=== PATIENT | female | born 1995 | race Asian ===

== ENCOUNTER 2022-06-05 13:17 | Inpatient (IN) ==
[2022-06-05] MEDS ORDERED: OXYTOCIN 30 UNITS/500 ML BAG IV PRN ×2 (15:19→16:18)
[2022-06-05] MEDS ORDERED: LIDOCAINE 1% LOCAL 20 ML VIAL INFIL PRN (15:19)
--- NOTE | 2022-06-05 15:24 | History & Physical Report ---
Date of Service June 05, 2022 Assessment & Plan (1) Supervision of normal first : Plan: Rupture of membranes. Will admit to L&D for labor. Epidural as desired. (2) Gestational hypertension: Plan: Elevated blood pressures. No prior history of elevated blood pressures with this pregancy. Will check CMP/CBC, urine protein/creatine ratio to r/u preeclampsia. Continue to trend blood pressures. History of Present Illness Chief Complaint: ROM Primary Care Provider: NO PCP Herminia is a 27 y/o female currently at 38 4/7 WGA with an SPIKE 06/15/22 as determined by LMP who is here for labor after rupture of membranes. Clear fluid around 12:00. Her was complicated by anemia s/p iron infusion x3 and B12 injections. Most recent hemoglobin= 13.1 (05/27/22). Denies contractions; + movement; + fluid loss; - bloody show External FHT and external uterine monitors used; Category 1 tracing; moderate FHT variability. Had regular appointments with OB. Labs: (11/04/21) Blood type: B+ Antibody screen: neg Hg: pending (today) Hct: pending (today) WBC: pending (today) Plt: pending (today) Rubella: immune VDRL/RPR: neg Gonorrhea: neg Chlamydia: neg HIV: neg HbSAg: neg GBS: neg Other screens: Declines cf/sma--mln Declines cfdna--mln Allergies Allergy/AdvReac Type Severity Reaction Status Date / Time No Known Allergies Allergy Verified 06/05/22 13:43 Home Medications Medication Instructions Recorded Confirmed Type prenat.vits,bryan,[id number] 1 tabs PO DAILY 12/30/21 06/05/22 History cyanocobalamin (B12)-cobamamide 1 tiffanie sublingual DAILY 06/05/22 06/05/22 History 5,000 mcg-100 mcg sublingual lozenge (B12) ferrous sulfate 325 mg (65 mg 325 mg PO DAILY 06/05/22 06/05/22 History iron) tablet (Iron (ferrous sulfate)) Patient History Medical History (Updated 06/05/22 @ 15:35 by Supriya Burleson DO) Anemia affecting had iron infusions X3 Last infusion in December; seeing Heme; also getting B 12 injections for moderate anemia. No known health problems Surgical History No history of previous surgery Family History Denies family history of Ovarian cancer Breast cancer Colorectal cancer Social History (Updated 06/05/22 @ 13:43 by Chika Chiu, RN) Smoking Status: Never smoker Hx Alcohol Use: No Hx Substance Use: No Preferred Language: Ibis Communication Tools: IPad Senior Program Planner Required: Yes Beliefs That Will Affect Care: Restorationism Restorationism Beliefs: Vegitarian; no meat marital status: marital status details: Feliberto Chaparro (26) [phone] Current Living Situation: Spouse Current Living Situation Comment: lives with spouse, no pets current occupational status: unemployed Other Information That Helps Us Care for You: No Feels Safe at Home: Yes Safety Concerns: Feels Safe At This Time Review of Systems Denies fever, chills, sweats Denies shortness of breath, difficulty breathing, chest pain, palpitations, chest pressure. Denies breast pain. Denies dysuria. Denies headache or changes in vision. Physical Exam Physical Exam: General: Alert, oriented. No acute distress. Cardiac: Regular rate and rhythm, no murmurs/rubs/gallops. Respiratory: Clear to auscultation bilaterally a/p, no wheezes/rales/rhonchi. No increased work of breathing. Symmetrical chest rise. No respiratory distress. Abdomen: Gravid Pelvic: Dilation 6 cm; Effacement 100; Station [address] Chaparro Lower Extremities: No lower extremity edema or swelling. No deep calf pain. Milagro's negative bilaterally Results & Data ([facility]) Vital Signs (Past 12 Hours) Vital Signs Temp Pulse Resp BP 06/05/22 15:13 76 159/89 H 06/05/22 15:00 37.1 C 06/05/22 14:54 92 H 143/90 H 06/05/22 14:34 86 150/91 H 06/05/22 14:15 81 158/92 H 06/05/22 13:53 78 163/90 H 06/05/22 13:33 18 06/05/22 13:33 37.0 C 18 06/05/22 13:32 81 172/92 H 06/05/22 13:29 77 187/96 H Supervising Physician Co-Signing Physician Notes Resident Physician Supervision Note: I was present with Dr. Burleson during the history and exam. I discussed the case with the resident and agree with the findings and plan as documented in the note. Any exceptions or clarifications are listed here: 27yo with cc of srom, labor. Denies bull or visual change or ruq pain but is having back pain and increased swelling. abd soft gravid nt, efw 7-8#, dtrs +2-+3, no clonus. fhts categ 1. sve 6/100/0. 38+wks rom, gestational hypertension--admit iv, labs, reeval for cx change. pit aug if needed. fhts categ 1. check urine prot/cr ratio, dip was trace protein. Documented By: Milagro Chaparro MD, FACOG Resident Activity Tracking Resident Involvement: Resident Care Provided Care Provided: OB Delivery (H&P)
[2022-06-05 16:06] LABS: Hematocrit (blood only) 38.5 % (34.1-44.9); Hemoglobin 13.2 g/dl (12.0-16.0); White Blood Count 10.64 K/ul (4.8-10.8)
[2022-06-05 16:09] LABS: Mean Corpuscular Hemoglobin 29.9 pg (25.0-34.0); Mean Corpuscular Hgb Conc 34.3 g/dL (32.0-36.0); Mean Corpuscular Volume 87.3 fL (80.0-100.0); Mean Platelet Volume 13.1 fL (9.4-12.3); Platelet Count 143 K/uL (130-400); Platelet Estimate Normal (Normal); RDW Coefficient of Variation 15.5 % (11.5-14.5); RDW Standard Deviation 49.5 fL (36.4-46.3); Red Blood Count 4.41 M/uL (3.93-5.22)
[2022-06-05 16:11] LABS: Alanine Aminotransferase 14 U/L (7-52); Albumin Globulin Ratio 1.1 (0.9-2); Albumin Level 3.9 gm/dl (3.4-5.0); Alkaline Phosphatase 164 U/L (34-104); Anion Gap 9 (3-11); Aspartate Aminotransferase 20 U/L (13-39); BUN Creatinine Ratio 11.8 (10-20); Bilirubin,Total 0.5 mg/dl (0.2-1.0); Blood Urea Nitrogen 6 mg/dl (6-23); Calcium 9.3 mg/dl (8.5-10.1); Carbon Dioxide 20 mmol/L (21-32); Chloride 107 mmol/L (98-107); Creatinine Clr Calc Pharmacy 152.1 ml/min; Est GFR (African American) > 150.0 ml/min; Est GFR (Non-African American) 130.9 ml/min; Globulin 3.5 gm/dl (2.5-4.0); Glucose 77 mg/dl (70-99(Fasting)); Potassium 3.8 mmol/L (3.5-5.1); Sodium 136 mmol/L (136-145); Total Protein 7.4 gm/dl (6.0-8.3)
[2022-06-05] MEDS: LACTATED RINGER'S 1,000 ML IV PRN ×3 (17:05→23:56)
[2022-06-05] MEDS ORDERED: LIDOCAINE 2%/EPINEPHRINE 1:200,000 20 ML SDV ONE (17:10)
[2022-06-05] MEDS ORDERED: BUPIVACAINE 0.25% 30 ML VIAL ONE (17:10)
[2022-06-05] MEDS ORDERED: SODIUM CHLORIDE 0.9% INJ 10 ML VIAL ONE (17:10)
[2022-06-05] MEDS ORDERED: ePHEDrine sulfate 50 MG/ML AMP ONE (17:10)
[2022-06-05] MEDS ORDERED: fentaNYL citrate 100 MCG/2 ML VIAL ONE (17:10)
[2022-06-05] MEDS ORDERED: fentaNYL 2MCG/ML ROPIVACAINE 1.25MG/ML 100 ML BAG EPI ONE (17:11)
[2022-06-05 18:23] LABS: Creatinine Urine Random 60.1 mg/dl; Protein Creatinine Ratio Urine 0.7 (0-0.2); Total Protein Urine Random 39.8 mg/dl (0-11.9)
--- NOTE | 2022-06-05 18:32 | Anesthesiology Consultation ---
Date of Service June 05, 2022 Assessment & Plan Chart Review Chart Review: Acceptable Risk for Labor Epidural Consults Requested none History Height/Weight Height: 5 ft 3 in Weight: 68.039 kg Allergies Allergy/AdvReac Type Severity Reaction Status Date / Time No Known Allergies Allergy Verified 06/05/22 13:43 Medications Home Medications Medication Instructions Recorded Confirmed Last Taken prenat.vits,bryan,vkj-cvtj-yrvqw 1 tabs PO DAILY 12/30/21 06/05/22 06/04/22 21:00 cyanocobalamin (B12)-cobamamide 1 tiffanie sublingual DAILY 06/05/22 06/05/22 06/04/22 21:00 5,000 mcg-100 mcg sublingual lozenge (B12) ferrous sulfate 325 mg (65 mg 325 mg PO DAILY 06/05/22 06/05/22 06/04/22 21:00 iron) tablet (Iron (ferrous sulfate)) Active Medications Generic Name Dose Route Start Last Admin Trade Name Freq PRN Reason Stop Dose Admin Lactated Ringer's 1,000 mls @ 125 mls/hr 06/05/22 15:19 06/05/22 17:56 Lr IV 06/07/22 15:18 125 mls/hr .Q8H PRN Administration L&D Protocol Protocol Past Medical History Medical History (Updated 06/05/22 @ 15:35 by Supriya Burleson DO) Anemia affecting had iron infusions X3 Last infusion in December; seeing Heme; also getting B 12 injections for moderate anemia. No known health problems Past Family History Family History Denies family history of Ovarian cancer Breast cancer Colorectal cancer Past Surgical History Surgical History No history of previous surgery Social History Smoking Status: Never smoker Hx Alcohol Use: No Hx Substance Use: No substance use type: does not use Physical Exam Vital Signs Last Vital Signs Temp 37.1 C 06/05/22 15:00 Pulse 114 H 06/05/22 18:31 Resp 18 06/05/22 13:33 BP 129/70 06/05/22 18:31 Pulse Ox 100 06/05/22 18:30 Testing Laboratory Results 06/05/22 15:32 06/05/22 15:32
[2022-06-05] MEDS ORDERED: diphenhydrAMINE 50 MG/ML VIAL IV PRN (18:33)
[2022-06-05] MEDS ORDERED: NALOXONE HCL 0.4 MG/1 ML VIAL/CARP IV PRN (18:33)
[2022-06-05] MEDS ORDERED: NALOXONE HCL 1 MG in SODIUM CHLORIDE 0.9% 1000ML 1,000 ML IV PRN (18:33)
[2022-06-05] MEDS ORDERED: fentaNYL 2MCG/ML ROPIVACAINE 1.25MG/ML 100 ML BAG EPI PRN (18:33)
[2022-06-05] MEDS ORDERED: NALBUPHINE HCL INJ 10 MG/ML AMP IV PRN (18:33)
[2022-06-05] MEDS: ePHEDrine sulfate 50 MG/ML AMP IV PRN (19:12)
--- NOTE | 2022-06-06 00:03 | Labor Progress Brief Note ---
Date of Service June 05, 2022 Subjective called to see patient, she is refusing to push. pt rolling in bed on my arrival, pointing to her her lower abdomen as painful during ctx. able to communicate between contractions. Assessment & Plan (1) Gestational hypertension: Plan pt has progressed to pushing but after 1hr pushing per nurse noted increased pain and does not want to push, wants to rest. when able to between her ctx, sp angus to pt and offered her c/s now vs. pushing vs. better pain mgmt and then eventual pushing. she elects to see if we can get her pain under control and then may try to push. nurse had not tried to increase settings as of yet but with pt pain display rec call anesth to see if anything they can provide with quicker relief. apparently epidural has been working. Nursing noting bladder emptied about 2.5 hr ago. Pt spouse not in room during discussion in hallway he asks me if she could have surgery, i told him that i did offer pt surgery but that is not what she has chosen thus far. he plans to go into room and review options and choices with spouse. fhts categ 1. no decels during ctx although not traced well, due to pt rolling. Admission and Anticipated Discharge Date Admission Date: June 05, 2022 Physical Exam Constitutional: WD/WN, vitals as above Genitourinary: OB Exam Monitor Tracing: + external FHT monitor used, + external uterine monitor used (q2), + category I and + normal FHT variability Results & Data ([facility]) Vital Signs (Past 12 Hours) Vital Signs Temp Pulse Resp BP Pulse Ox 06/05/22 19:15 97.7 F 16 06/05/22 19:00 18 06/05/22 18:45 20 06/05/22 17:00 98.4 F 06/05/22 18:30 18 06/05/22 21:43 97.7 F 18 06/05/22 23:56 103 H 175/96 H 06/05/22 23:55 102 H 100 06/05/22 23:50 102 H 96 06/05/22 23:45 107 H 96 06/05/22 23:41 92 H 91 06/05/22 23:40 85 99 06/05/22 23:35 90 98 06/05/22 23:33 99 H 155/76 H 06/05/22 23:30 108 H 100 06/05/22 23:25 97 H 99 06/05/22 23:22 108 H 153/75 H 06/05/22 23:20 114 H 100 06/05/22 23:16 96 H 146/82 H 06/05/22 23:15 105 H 99 06/05/22 23:12 110 H 152/75 H 06/05/22 23:10 101 H 99 06/05/22 23:05 92 H 99 06/05/22 23:00 97.7 F 103 H 20 99 06/05/22 22:55 109 H 98 06/05/22 22:54 92 H 157/77 H 06/05/22 22:50 101 H 99 06/05/22 22:45 100 H 100 06/05/22 22:42 98 H 136/88 06/05/22 22:40 99 H 99 06/05/22 22:37 96 H 158/77 H 06/05/22 22:35 100 H 100 06/05/22 22:32 88 159/77 H 06/05/22 22:31 115 H 191/103 H 06/05/22 22:30 101 H 100 06/05/22 22:27 98 H 143/82 H 06/05/22 22:25 93 H 100 06/05/22 22:20 102 H 152/79 H 100 06/05/22 22:17 110 H 170/89 H 06/05/22 22:15 102 H 100 06/05/22 22:13 18 06/05/22 22:13 18 06/05/22 22:12 99 H 135/89 06/05/22 22:10 103 H 100 06/05/22 22:06 90 148/81 H 06/05/22 22:05 90 100 06/05/22 22:02 82 144/77 H 06/05/22 22:00 102 H 100 06/05/22 21:57 86 139/79 06/05/22 21:55 98 H 100 06/05/22 21:51 90 150/80 H 06/05/22 21:50 93 H 100 06/05/22 21:46 82 146/80 H 06/05/22 21:45 97 H 100 06/05/22 21:44 88 143/74 H 06/05/22 21:42 97 H 170/71 H 06/05/22 21:40 93 H 100 06/05/22 21:35 82 06/05/22 21:35 87 142/75 H 100 06/05/22 21:32 102 H 198/122 H 06/05/22 21:30 115 H 100 06/05/22 21:27 109 H 139/80 06/05/22 21:25 84 100 06/05/22 21:20 88 100 06/05/22 21:16 101 H 159/75 H 06/05/22 21:15 86 100 06/05/22 21:11 95 H 154/84 H 06/05/22 21:10 99 H 100 06/05/22 21:07 93 H 134/77 06/05/22 21:05 86 100 06/05/22 21:02 85 135/79 06/05/22 21:00 88 100 06/05/22 20:56 106 H 122/69 06/05/22 20:55 91 H 100 06/05/22 20:52 98 H 142/68 H 06/05/22 20:50 109 H 100 06/05/22 20:47 88 123/62 06/05/22 20:45 100 H 100 06/05/22 20:42 98 H 132/74 06/05/22 20:40 89 100 06/05/22 20:37 98 H 130/78 06/05/22 20:35 89 100 06/05/22 20:31 92 H 130/72 06/05/22 20:30 85 100 06/05/22 20:28 100 H 124/65 06/05/22 20:25 103 H 100 06/05/22 20:22 100 H 116/67 06/05/22 20:20 93 H 100 06/05/22 20:16 87 131/73 06/05/22 20:15 83 100 06/05/22 20:11 99 H 136/69 06/05/22 20:10 85 100 06/05/22 20:07 101 H 126/66 06/05/22 20:05 85 100 06/05/22 20:02 95 H 128/71 06/05/22 20:00 96 H 100 06/05/22 19:56 96 H 130/66 06/05/22 19:55 103 H 100 06/05/22 19:52 96 H 121/67 06/05/22 19:50 99 H 100 06/05/22 19:46 100 H 116/68 06/05/22 19:45 105 H 100 06/05/22 19:42 86 124/64 06/05/22 19:40 104 H 100 06/05/22 19:36 81 116/63 06/05/22 19:35 92 H 99 06/05/22 19:33 100 H 117/60 06/05/22 19:30 105 H 100 06/05/22 19:26 93 H 129/62 06/05/22 19:25 106 H 100 06/05/22 19:22 85 122/56 L 06/05/22 19:20 96 H 99 06/05/22 19:17 96 H 130/60 06/05/22 19:15 137 H 100 06/05/22 19:11 109 H 127/60 06/05/22 19:10 115 H 99 06/05/22 19:06 98 H 96/55 L 06/05/22 19:05 99 H 99 06/05/22 19:03 90 117/56 L 06/05/22 19:00 97 H 100 06/05/22 18:56 93 H 123/65 06/05/22 18:55 91 H 99 06/05/22 18:50 102 H 100 06/05/22 18:49 109 H 129/61 06/05/22 18:47 112 H 131/65 06/05/22 18:45 92 H 134/64 99 06/05/22 18:43 111 H 128/64 06/05/22 18:41 99 H 133/67 06/05/22 18:40 94 H 99 06/05/22 18:39 93 H 132/66 06/05/22 18:37 92 H 132/66 06/05/22 18:35 94 H 139/66 99 06/05/22 18:33 92 H 136/68 06/05/22 18:31 114 H 129/70 06/05/22 18:30 110 H 100 06/05/22 18:29 117 H 133/76 06/05/22 18:27 90 140/73 06/05/22 18:25 78 153/74 H 100 06/05/22 18:23 77 06/05/22 18:23 154/79 H 06/05/22 18:23 83 167/80 H 06/05/22 18:20 96 H 100 06/05/22 18:15 109 H 100 06/05/22 18:10 102 H 100 06/05/22 18:05 93 H 100 06/05/22 18:00 91 H 100 06/05/22 17:55 87 100 06/05/22 17:50 95 H 100 06/05/22 17:45 98 H 100 06/05/22 17:40 97 H 100 06/05/22 15:53 87 141/92 H 06/05/22 15:34 88 178/104 H 06/05/22 15:35 83 165/98 H 06/05/22 15:13 76 159/89 H 06/05/22 15:00 98.8 F 06/05/22 14:54 92 H 143/90 H 06/05/22 14:34 86 150/91 H 06/05/22 14:15 81 158/92 H 06/05/22 13:53 78 163/90 H 06/05/22 13:33 18 06/05/22 13:33 98.6 F 18 06/05/22 13:32 81 172/92 H 06/05/22 13:29 77 187/96 H Coding Level of Care Code None Diagnoses Gestational hypertension O13.9
[2022-06-06] MEDS: ePHEDrine sulfate 50 MG/ML AMP IV PRN (00:31)
[2022-06-06] MEDS ORDERED: NURSING L&D Epidural Breakthrough Pain Update ONE (00:53)
[2022-06-06] MEDS ORDERED: LACTATED RINGER'S 1,000 ML IV SCH (05:15)
--- NOTE | 2022-06-06 05:20 | Labor Progress Brief Note ---
Date of Service June 06, 2022 Subjective came to see pt progress now 2hr from pushing after resting, did get relief from pain mgmt via epidural now pt rolling in bed and refusing to push. Assessment & Plan (1) Mild preeclampsia: Plan pt refusing to push and now requesting c/s. aware that with station and effective pushing that she could likely deliver but pt refuses. will not even engage me to consider this. c/s reviewed, risks, benefits, alt and consent signed. pit off. anesth aware. they are re-bolusing epidural to try to get pt pain relief now. will need to see how bps do as labile. Admission and Anticipated Discharge Date Admission Date: June 05, 2022 Physical Exam Constitutional: WD/WN, vitals as above Genitourinary: Manual OB Exam: + cervical dilation 10 cm, + cervical effacement 100% and + station + 2 OB Exam Monitor Tracing: + external FHT monitor used, + external uterine monitor used (q2-3), + category II, + normal FHT variability and + variable decelerations refusing to push and demanding c/s Results & Data ([facility]) Vital Signs (Past 12 Hours) Vital Signs Temp Pulse Resp BP Pulse Ox 06/05/22 19:15 97.7 F 16 06/05/22 19:00 18 06/05/22 18:45 20 06/05/22 18:30 18 06/05/22 21:43 97.7 F 18 06/06/22 05:15 114 H 100 06/06/22 05:11 116 H 90 06/06/22 05:10 115 H 100 06/06/22 05:05 120 H 172/115 H 98 06/06/22 05:01 119 H 81 L 06/06/22 05:00 118 H 100 06/06/22 04:55 138 H 92 06/06/22 04:50 127 H 100 06/06/22 04:48 116 H 176/95 H 06/06/22 04:45 109 H 97 06/06/22 04:43 119 H 90 06/06/22 04:40 119 H 99 06/06/22 04:37 114 H 93 06/06/22 04:35 133 H 99 06/06/22 04:33 117 H 143/87 H 06/06/22 04:30 117 H 99 06/06/22 04:25 108 H 98 06/06/22 04:20 106 H 98 06/06/22 04:15 115 H 99 06/06/22 04:12 123 H 159/86 H 06/06/22 04:10 126 H 99 06/06/22 04:05 122 H 98 06/06/22 04:00 129 H 100 06/06/22 03:55 120 H 100 06/06/22 03:50 125 H 97 06/06/22 03:45 116 H 98 06/06/22 03:40 118 H 98 06/06/22 03:35 116 H 99 06/06/22 03:34 133 H 139/98 06/06/22 03:30 110 H 99 06/06/22 03:25 124 H 100 06/06/22 03:20 128 H 100 06/06/22 03:19 120 H 143/81 H 06/06/22 03:15 124 H 99 06/06/22 03:10 103 H 99 06/06/22 03:07 105 H 140/76 06/06/22 03:05 113 H 99 06/06/22 03:01 118 H 149/106 H 06/06/22 03:00 119 H 100 06/06/22 02:56 108 H 119/57 L 06/06/22 02:55 105 H 100 06/06/22 02:54 102 H 126/66 06/06/22 02:50 111 H 100 06/06/22 02:47 18 06/06/22 02:47 98.1 F 18 06/06/22 02:45 89 99 06/06/22 02:42 90 129/63 06/06/22 02:40 85 99 06/06/22 02:36 105 H 110/71 06/06/22 02:35 102 H 99 06/06/22 02:31 100 H 105/61 06/06/22 02:30 88 98 06/06/22 02:26 87 109/57 L 06/06/22 02:25 84 100 06/06/22 02:21 95 H 108/58 L 06/06/22 02:20 100 H 99 06/06/22 02:16 102 H 101/50 L 06/06/22 02:15 89 100 06/06/22 02:12 99 H 131/56 L 06/06/22 02:10 88 99 06/06/22 02:06 100 H 118/64 06/06/22 02:05 99 H 99 06/06/22 02:02 109 H 126/58 L 06/06/22 02:00 86 99 06/06/22 01:57 86 99/52 L 06/06/22 01:55 85 99 06/06/22 01:53 96 H 121/52 L 06/06/22 01:50 94 H 99 06/06/22 01:47 97 H 119/58 L 06/06/22 01:45 101 H 100 06/06/22 01:43 88 102/56 L 06/06/22 01:40 109 H 100 06/06/22 01:37 97 H 135/86 06/06/22 01:35 102 H 100 06/06/22 01:33 86 113/56 L 06/06/22 01:30 88 99 06/06/22 01:26 93 H 119/60 06/06/22 01:25 87 100 06/06/22 01:21 83 112/62 06/06/22 01:20 97 H 99 06/06/22 01:16 82 105/55 L 06/06/22 01:15 88 100 06/06/22 01:12 82 108/54 L 06/06/22 01:10 88 100 06/06/22 01:06 83 102/55 L 06/06/22 01:05 87 99 06/06/22 01:02 80 102/53 L 06/06/22 01:00 88 99 06/06/22 00:58 97 H 98/50 L 06/06/22 00:55 91 H 100 06/06/22 00:51 101 H 100/55 L 06/06/22 00:50 96 H 100 06/06/22 00:48 97 H 110/55 L 06/06/22 00:45 114 H 100 06/06/22 00:41 114 H 97/49 L 06/06/22 00:40 90 99 06/06/22 00:38 108 H 107/55 L 06/06/22 00:35 94 H 100 06/06/22 00:33 123 H 96/50 L 06/06/22 00:30 114 H 100 06/06/22 00:28 131 H 84/50 L 06/06/22 00:25 121 H 99 06/06/22 00:22 122 H 122/58 L 06/06/22 00:20 113 H 99 06/06/22 00:16 111 H 141/70 H 06/06/22 00:15 114 H 99 06/06/22 00:11 96 H 154/72 H 06/06/22 00:10 100 H 100 06/06/22 00:08 92 H 06/06/22 00:08 170/88 H 06/06/22 00:08 93 H 166/86 H 06/06/22 00:06 90 143/90 H 06/06/22 00:05 103 H 100 06/06/22 00:01 102 H 175/89 H 06/06/22 00:00 103 H 99 06/05/22 23:58 101 H 93 06/05/22 23:56 103 H 175/96 H 06/05/22 23:55 102 H 100 06/05/22 23:50 102 H 96 06/05/22 23:45 107 H 96 06/05/22 23:41 92 H 91 06/05/22 23:40 85 99 06/05/22 23:35 90 98 06/05/22 23:33 99 H 155/76 H 06/05/22 23:30 108 H 100 06/05/22 23:25 97 H 99 06/05/22 23:22 108 H 153/75 H 06/05/22 23:20 114 H 100 06/05/22 23:16 96 H 146/82 H 06/05/22 23:15 105 H 99 06/05/22 23:12 110 H 152/75 H 06/05/22 23:10 101 H 99 06/05/22 23:05 92 H 99 06/05/22 23:00 97.7 F 103 H 20 99 06/05/22 22:55 109 H 98 06/05/22 22:54 92 H 157/77 H 06/05/22 22:50 101 H 99 06/05/22 22:45 100 H 100 06/05/22 22:42 98 H 136/88 06/05/22 22:40 99 H 99 06/05/22 22:37 96 H 158/77 H 06/05/22 22:35 100 H 100 06/05/22 22:32 88 159/77 H 06/05/22 22:31 115 H 191/103 H 06/05/22 22:30 101 H 100 06/05/22 22:27 98 H 143/82 H 06/05/22 22:25 93 H 100 06/05/22 22:20 102 H 152/79 H 100 06/05/22 22:17 110 H 170/89 H 06/05/22 22:15 102 H 100 06/05/22 22:13 18 06/05/22 22:13 18 06/05/22 22:12 99 H 135/89 06/05/22 22:10 103 H 100 06/05/22 22:06 90 148/81 H 06/05/22 22:05 90 100 06/05/22 22:02 82 144/77 H 06/05/22 22:00 102 H 100 06/05/22 21:57 86 139/79 06/05/22 21:55 98 H 100 06/05/22 21:51 90 150/80 H 06/05/22 21:50 93 H 100 06/05/22 21:46 82 146/80 H 06/05/22 21:45 97 H 100 06/05/22 21:44 88 143/74 H 06/05/22 21:42 97 H 170/71 H 06/05/22 21:40 93 H 100 06/05/22 21:35 82 06/05/22 21:35 87 142/75 H 100 06/05/22 21:32 102 H 198/122 H 06/05/22 21:30 115 H 100 06/05/22 21:27 109 H 139/80 06/05/22 21:25 84 100 06/05/22 21:20 88 100 06/05/22 21:16 101 H 159/75 H 06/05/22 21:15 86 100 06/05/22 21:11 95 H 154/84 H 06/05/22 21:10 99 H 100 06/05/22 21:07 93 H 134/77 06/05/22 21:05 86 100 06/05/22 21:02 85 135/79 06/05/22 21:00 88 100 06/05/22 20:56 106 H 122/69 06/05/22 20:55 91 H 100 06/05/22 20:52 98 H 142/68 H 06/05/22 20:50 109 H 100 06/05/22 20:47 88 123/62 06/05/22 20:45 100 H 100 06/05/22 20:42 98 H 132/74 06/05/22 20:40 89 100 06/05/22 20:37 98 H 130/78 06/05/22 20:35 89 100 06/05/22 20:31 92 H 130/72 06/05/22 20:30 85 100 06/05/22 20:28 100 H 124/65 06/05/22 20:25 103 H 100 06/05/22 20:22 100 H 116/67 06/05/22 20:20 93 H 100 06/05/22 20:16 87 131/73 06/05/22 20:15 83 100 06/05/22 20:11 99 H 136/69 06/05/22 20:10 85 100 06/05/22 20:07 101 H 126/66 06/05/22 20:05 85 100 06/05/22 20:02 95 H 128/71 06/05/22 20:00 96 H 100 06/05/22 19:56 96 H 130/66 06/05/22 19:55 103 H 100 06/05/22 19:52 96 H 121/67 06/05/22 19:50 99 H 100 06/05/22 19:46 100 H 116/68 06/05/22 19:45 105 H 100 06/05/22 19:42 86 124/64 06/05/22 19:40 104 H 100 06/05/22 19:36 81 116/63 06/05/22 19:35 92 H 99 06/05/22 19:33 100 H 117/60 06/05/22 19:30 105 H 100 06/05/22 19:26 93 H 129/62 06/05/22 19:25 106 H 100 06/05/22 19:22 85 122/56 L 06/05/22 19:20 96 H 99 06/05/22 19:17 96 H 130/60 06/05/22 19:15 137 H 100 06/05/22 19:11 109 H 127/60 06/05/22 19:10 115 H 99 06/05/22 19:06 98 H 96/55 L 06/05/22 19:05 99 H 99 06/05/22 19:03 90 117/56 L 06/05/22 19:00 97 H 100 06/05/22 18:56 93 H 123/65 06/05/22 18:55 91 H 99 06/05/22 18:50 102 H 100 06/05/22 18:49 109 H 129/61 06/05/22 18:47 112 H 131/65 06/05/22 18:45 92 H 134/64 99 06/05/22 18:43 111 H 128/64 06/05/22 18:41 99 H 133/67 06/05/22 18:40 94 H 99 06/05/22 18:39 93 H 132/66 06/05/22 18:37 92 H 132/66 06/05/22 18:35 94 H 139/66 99 06/05/22 18:33 92 H 136/68 06/05/22 18:31 114 H 129/70 06/05/22 18:30 110 H 100 06/05/22 18:29 117 H 133/76 06/05/22 18:27 90 140/73 06/05/22 18:25 78 153/74 H 100 06/05/22 18:23 77 06/05/22 18:23 154/79 H 06/05/22 18:23 83 167/80 H 06/05/22 18:20 96 H 100 06/05/22 18:15 109 H 100 06/05/22 18:10 102 H 100 06/05/22 18:05 93 H 100 06/05/22 18:00 91 H 100 06/05/22 17:55 87 100 06/05/22 17:50 95 H 100 06/05/22 17:45 98 H 100 06/05/22 17:40 97 H 100 Coding Level of Care Code None Diagnoses Mild preeclampsia O14.00
[2022-06-06] MEDS: LACTATED RINGER'S 1,000 ML IV PRN (05:48)
[2022-06-06] MEDS ORDERED: LIDOCAINE 2%/EPINEPHRINE 1:200,000 20 ML SDV ONE (05:56)
[2022-06-06] MEDS ORDERED: MoRPHine SULFATE PF 1 MG/ML 10 ML AMP/VIAL ONE (05:56)
[2022-06-06] MEDS ORDERED: CITRIC ACID/SODIUM CITRATE 15 ML UDC PO SCH (06:00)
[2022-06-06] MEDS ORDERED: ceFAZolin 2000MG 2,000 MG/15 ML SYR IV SCH (06:00)
[2022-06-06] MEDS ORDERED: LACTATED RINGER'S 500 ML IV PRN (06:32)
[2022-06-06] MEDS ORDERED: NALOXONE HCL 0.08 MG in SYRINGE 1.8 ML IV PRN (06:32)
[2022-06-06] MEDS ORDERED: PROMETHAZINE HCL 25 MG in SODIUM CHLORIDE 0.9% 50 ML IV PRN (06:32)
[2022-06-06] MEDS ORDERED: ePHEDrine sulfate 50 MG/ML AMP IV PRN (06:32)
[2022-06-06] MEDS ORDERED: NALOXONE HCL 1 MG in SODIUM CHLORIDE 0.9% 1000ML 1,000 ML IV PRN (06:32)
[2022-06-06] MEDS ORDERED: HYDROmorphone INJ 0.5 MG/0.5 ML SYR IV PRN (06:32)
[2022-06-06] MEDS ORDERED: KETOROLAC 30 MG/ML VIAL IV PRN (06:32)
[2022-06-06] MEDS ORDERED: diphenhydrAMINE 50 MG/ML VIAL IV PRN (06:32)
[2022-06-06] MEDS ORDERED: NALBUPHINE HCL INJ 10 MG/ML AMP IV PRN (06:32)
[2022-06-06] MEDS ORDERED: MEPERIDINE HCL 25 MG/ML CARP/VIAL IV PRN (06:32)
[2022-06-06] MEDS ORDERED: ONDANSETRON INJ 2 MG/ML 2 ML VIAL IV PRN (06:32)
[2022-06-06] MEDS ORDERED: MoRPHine SULFATE 2 MG/ML CARP IV PRN (06:32)
[2022-06-06] MEDS ORDERED: MoRPHine SULFATE PF 1 MG/ML 10 ML AMP/VIAL INT SPINAL ONE (06:32)
[2022-06-06] MEDS ORDERED: NALOXONE HCL 0.4 MG/1 ML VIAL/CARP IV PRN (06:32)
[2022-06-06] MEDS ORDERED: DC INTRASPINAL MORPHINE SCH (06:45)
[2022-06-06] MEDS ORDERED: NO NARCOTICS OR SEDATIVES SCH (06:45)
[2022-06-06] MEDS ORDERED: SODIUM CHLORIDE 0.9% 1000ML 1,000 ML IV SCH (06:45)
[2022-06-06] MEDS ORDERED: fentaNYL citrate 100 MCG/2 ML VIAL ONE ×2 (06:48→07:13)
[2022-06-06] MEDS ORDERED: KETAMINE 50 MG/5 ML SYRINGE ONE (07:15)
[2022-06-06] MEDS ORDERED: OXYTOCIN 10 UNITS/ML 10ML VIAL ONE ×3 (07:22→07:32)
[2022-06-06] MEDS ORDERED: PHENYLEPHRINE 100MCG/ML 5ML SYR ONE (07:22)
--- NOTE | 2022-06-06 07:28 | Post Operative Brief Note ---
PG Immediate Post Op with CF Date of Surgery June 06, 2022 Pre & Post Diagnosis Operation Date: 06/06/22 05:15 1. 38+wk iup 2. Srom, active labor 3. Mild Preeclampsia 4. Maternal exhaustion 5. Desires elective section I identified the patient and participated in the time-out.: Yes Procedure Operation Date: 06/06/22 05:15 Actual Procedures p Primary Low Transverse Section in LD - Milagro Chaparro MD, FACOG Surgeon Milagro Chaparro MD, FACOG [place] Operator RN Estimated Blood Loss 800 Findings Consistent with Post-Op Diagnosis (viable infant apgars 9,9. normal uterus tubes and ovaries bilaterally) Fluids 1500 Specimens Specimen Description: cord blood Drains [place] Catheter Anesthesia Type Spinal Complications none Disposition Accompanied Patient To Recovery: No Disposition: L&D
[2022-06-06] MEDS: PRENATAL VITAMIN 1 TAB PO SCH (08:00)
[2022-06-06] MEDS: DOCUSATE SODIUM 100 MG CAP PO SCH ×2 (08:00→22:09)
[2022-06-06] MEDS: FERROUS SULFATE 325 MG TAB PO SCH (08:00)
[2022-06-06] MEDS: SIMETHICONE 80 MG CHEW PO SCH ×4 (08:00→22:09)
--- NOTE | 2022-06-06 08:02 | Operative Report ---
PG Post Operative Report Pre & Post Diagnosis Operation Date: 06/06/22 05:15 Pre-Op & Post Op Diagnosis: 1. 38+wk iup 2. Srom, active labor 3. Mild Preeclampsia 4. Maternal exhaustion 5. Desires elective section I identified the patient and participated in the time-out.: Yes Procedure Operation Date: 06/06/22 05:15 Actual Procedures p Primary Low Transverse Section in - Milagro Chaparro MD, FACOG Surgeon Mliagro Chaparro MD, FACOG [employer] RN Estimated Blood Loss 800 Findings Consistent with Post-Op Diagnosis (viable infant apgars 9,9. normal uterus tubes and ovaries bilaterally) Fluids 1500 Specimens cord blood Drains patel Anesthesia Type Spinal Complications none Disposition Accompanied Patient To Recovery: No Disposition: L&D Indications 27yo at 38wks who came to L&D with rupture of membranes in labor. Required pitocin augmentation and received epidural. Progressed to complete and began 2nd stage but refused to push. Was rebolused epidural and demanded rest and then began pushing again but again refused to continue pushing. She demanded section. Description of Procedure The patient was taken to the operating room and identified. After adequate anesthesia was obtained, she was placed in the supine position with a leftward tilt on the operating table and prepped and draped in the usual sterile fashion. A patel catheter had already been placed. The knife was used to create a Pfannensteil skin incision that was carried down to the underlying layer of fascia. The fascia was nicked in the midline and this opening was extended laterally using Hanson scissors. Bar clamps were placed on the superior and inferior aspect of the fascial incision tenting it upward and the underlying rectus muscles were dissected off the overlying fascia both sharply and bluntly using Hanson scissors. The rectus muscles were bluntly in the midline. The peritoneal cavity was bluntly entered into. This opening was stretched. The bladder blade was placed. The vesicouterine peritoneum was elevated and opened up into and the bladder flap was created digitally and bladder blade was replaced. The knife was used to create a hysterotomy and this opening was stretched. The operators hand was placed through the hysterotomy and the bladder blade was removed. The head was elevated and flexed and with fundal pressure the head was delivered. The shoulders and body were rapidly delivered. The cord was clamped and cut and the infant's mouth and nares were bulb suction. The infant was handed off to the awaiting pediatricians. Cord blood was obtained. The placenta was manually expressed. The uterus was exteriorized and cleared of all clots and debris. Dilute IV Pitocin was begun. The uterine tone was improving but still boggy and so additional IM methergine into uterine muscle given. The hysterotomy was closed in a running interlocking fashion using 0 Vicryl followed by a second imbricating layer of 0 Vicryl. The hysterotomy was not hemostatic as there were lateral extentions on each side that needed to be secured with additional sutures of 0 vicryl. The bladder flap had bleeding sites that were elevated with a right angle clamps and the suture ligated with 2-0 vicryl. There was a window on the left broad ligament that was closed with chromic. The pelvis was suctioned. The uterus was returned to the abdomen. The gutters were cleared of all clots and debris. The hysterotomy was reinspected and noted to be hemostatic. Slight oozing in bladder flap area was treated with steph and due to the lateral bleeding site on left of hysterotomy, flow seal was placed. The fascia was then closed in running fashion using 0 Vicryl. The subcutaneous fat was copiously irrigated and reapproximated using 2-0 chromic. The skin was closed in a subcuticular fashion using 4-0 monocryl. At this point the procedure was terminated. The patient was transferred to the recovery room in stable condition. All sponge, lap and needle counts are correct x2. I attest to the content of the Intraoperative Record and any orders documented therein. Any exceptions are noted below. OB Procedure Charges 78326
[2022-06-06] MEDS ORDERED: MAG SULFATE 4GM BOLUS FROM BAG IV ONE (08:18)
[2022-06-06] MEDS: MAGNESIUM SULFATE / WTR 40 GM/1,000 ML BAG IV SCH (08:30)
[2022-06-06 08:31] LABS: Hematocrit (blood only) 35.2 % (34.1-44.9); Hemoglobin 11.9 g/dl (12.0-16.0); Mean Corpuscular Hemoglobin 29.8 pg (25.0-34.0); Mean Corpuscular Hgb Conc 33.8 g/dL (32.0-36.0); Mean Corpuscular Volume 88.2 fL (80.0-100.0); Mean Platelet Volume 12.4 fL (9.4-12.3); Platelet Count 132 K/uL (130-400); RDW Coefficient of Variation 15.9 % (11.5-14.5); RDW Standard Deviation 51.1 fL (36.4-46.3); Red Blood Count 3.99 M/uL (3.93-5.22); White Blood Count 15.68 K/ul (4.8-10.8)
[2022-06-06] MEDS ORDERED: BENZOCAINE 20% AER SPR 82.5 GM CAN EXT PRN (08:37)
[2022-06-06] MEDS ORDERED: MAGNESIUM HYDROXIDE SUSP 30 ML UDC PO PRN (08:37)
[2022-06-06] MEDS ORDERED: DIPHTHERIA/TETANUS/PERTUSSIS 0.5 ML SYR/VIAL IM ONE (08:37)
[2022-06-06] MEDS ORDERED: SENNA 8.6 MG TAB PO PRN (08:37)
[2022-06-06] MEDS ORDERED: HYDROCORTISONE ACETATE 25 MG SUPP PR PRN (08:37)
--- NOTE | 2022-06-06 08:37 | Anesthesia Procedure Note ---
Date of Service June 06, 2022 Anesthesia Post Epidural Note Vital Signs Vital Signs: Temp Pulse Resp BP Pulse Ox 36.7 C 100 H 20 172/93 H 100 06/06/22 07:45 06/06/22 08:37 06/06/22 08:05 06/06/22 08:37 06/06/22 08:35 Pain Intensity Bilateral Abdomen: Pain Intensity: 10 Notes Mental Status: alert / awake / arousable Nausea / Vomiting: adequately controlled Pain: adequately controlled Airway Patency, RR, SpO2: stable & adequate BP & HR: stable & adequate Hydration State: stable & adequate Neuraxial Anesthesia: was administered and sensory block is resolving Anesthetic Complications: no major complications apparent and Pt Satisfied with anesthetic care Epidural: Removed without complications and With tip intact
--- NOTE | 2022-06-06 08:37 | Anesthesiology Progress Note ---
Date of Service June 06, 2022 Anesthesia Post Procedure Vital Signs Vital Signs: Temp Pulse Resp BP Pulse Ox 06/06/22 08:05 20 06/06/22 07:55 22 06/06/22 07:45 36.7 C 22 06/05/22 19:15 36.5 C 16 06/05/22 19:00 18 06/05/22 18:45 20 06/05/22 17:00 36.9 C 06/05/22 18:30 18 06/05/22 21:43 36.5 C 18 06/06/22 08:35 85 100 06/06/22 08:32 95 H 164/90 H 06/06/22 08:30 111 H 100 06/06/22 08:27 83 180/88 H 06/06/22 08:25 99 H 100 06/06/22 08:22 92 H 182/89 H 06/06/22 08:20 90 100 06/06/22 08:17 100 H 181/98 H 06/06/22 08:15 105 H 100 06/06/22 08:12 94 H 176/98 H 06/06/22 08:10 92 H 100 06/06/22 08:07 95 H 172/92 H 06/06/22 08:05 108 H 100 06/06/22 08:02 109 H 163/93 H 06/06/22 08:00 97 H 100 06/06/22 07:57 91 H 187/95 H 06/06/22 07:55 92 H 100 06/06/22 07:52 82 186/91 H 06/06/22 07:50 78 100 06/06/22 07:47 93 H 180/92 H 06/06/22 07:45 86 100 06/06/22 07:40 100 06/06/22 07:40 99 H 06/06/22 07:40 180/100 H 06/06/22 07:40 86 173/94 H 06/06/22 05:50 141 H 100 06/06/22 05:49 133 H 143/77 H 06/06/22 05:45 140 H 100 06/06/22 05:40 143 H 100 06/06/22 05:35 108 H 100 06/06/22 05:34 104 H 171/79 H 06/06/22 05:30 110 H 100 06/06/22 05:25 95 H 100 06/06/22 05:20 115 H 99 06/06/22 05:18 115 H 175/101 H 06/06/22 05:15 114 H 100 06/06/22 05:11 116 H 90 06/06/22 05:10 115 H 100 06/06/22 05:05 120 H 172/115 H 98 06/06/22 05:01 119 H 81 L 06/06/22 05:00 118 H 100 06/06/22 04:55 138 H 92 06/06/22 04:50 127 H 100 06/06/22 04:48 116 H 176/95 H 06/06/22 04:45 109 H 97 06/06/22 04:43 119 H 90 06/06/22 04:40 119 H 99 06/06/22 04:37 114 H 93 06/06/22 04:35 133 H 99 06/06/22 04:33 117 H 143/87 H 06/06/22 04:30 117 H 99 06/06/22 04:25 108 H 98 06/06/22 04:20 106 H 98 06/06/22 04:15 115 H 99 06/06/22 04:12 123 H 159/86 H 06/06/22 04:10 126 H 99 06/06/22 04:05 122 H 98 06/06/22 04:00 129 H 100 06/06/22 03:55 120 H 100 06/06/22 03:50 125 H 97 06/06/22 03:45 116 H 98 06/06/22 03:40 118 H 98 06/06/22 03:35 116 H 99 06/06/22 03:34 133 H 139/98 06/06/22 03:30 110 H 99 06/06/22 03:25 124 H 100 06/06/22 03:20 128 H 100 06/06/22 03:19 120 H 143/81 H 06/06/22 03:15 124 H 99 06/06/22 03:10 103 H 99 06/06/22 03:07 105 H 140/76 06/06/22 03:05 113 H 99 06/06/22 03:01 118 H 149/106 H 06/06/22 03:00 119 H 100 06/06/22 02:56 108 H 119/57 L 06/06/22 02:55 105 H 100 06/06/22 02:54 102 H 126/66 06/06/22 02:50 111 H 100 06/06/22 02:47 18 06/06/22 02:47 36.7 C 18 06/06/22 02:45 89 99 06/06/22 02:42 90 129/63 06/06/22 02:40 85 99 06/06/22 02:36 105 H 110/71 06/06/22 02:35 102 H 99 06/06/22 02:31 100 H 105/61 06/06/22 02:30 88 98 06/06/22 02:26 87 109/57 L 06/06/22 02:25 84 100 06/06/22 02:21 95 H 108/58 L 06/06/22 02:20 100 H 99 06/06/22 02:16 102 H 101/50 L 06/06/22 02:15 89 100 06/06/22 02:12 99 H 131/56 L 06/06/22 02:10 88 99 06/06/22 02:06 100 H 118/64 06/06/22 02:05 99 H 99 06/06/22 02:02 109 H 126/58 L 06/06/22 02:00 86 99 06/06/22 01:57 86 99/52 L 06/06/22 01:55 85 99 06/06/22 01:53 96 H 121/52 L 06/06/22 01:50 94 H 99 06/06/22 01:47 97 H 119/58 L 06/06/22 01:45 101 H 100 06/06/22 01:43 88 102/56 L 06/06/22 01:40 109 H 100 06/06/22 01:37 97 H 135/86 06/06/22 01:35 102 H 100 06/06/22 01:33 86 113/56 L 06/06/22 01:30 88 99 06/06/22 01:26 93 H 119/60 06/06/22 01:25 87 100 06/06/22 01:21 83 112/62 06/06/22 01:20 97 H 99 06/06/22 01:16 82 105/55 L 06/06/22 01:15 88 100 06/06/22 01:12 82 108/54 L 06/06/22 01:10 88 100 06/06/22 01:06 83 102/55 L 06/06/22 01:05 87 99 06/06/22 01:02 80 102/53 L 06/06/22 01:00 88 99 06/06/22 00:58 97 H 98/50 L 06/06/22 00:55 91 H 100 06/06/22 00:51 101 H 100/55 L 06/06/22 00:50 96 H 100 06/06/22 00:48 97 H 110/55 L 06/06/22 00:45 114 H 100 06/06/22 00:41 114 H 97/49 L 06/06/22 00:40 90 99 06/06/22 00:38 108 H 107/55 L 06/06/22 00:35 94 H 100 06/06/22 00:33 123 H 96/50 L 06/06/22 00:30 114 H 100 06/06/22 00:28 131 H 84/50 L 06/06/22 00:25 121 H 99 06/06/22 00:22 122 H 122/58 L 06/06/22 00:20 113 H 99 06/06/22 00:16 111 H 141/70 H 06/06/22 00:15 114 H 99 06/06/22 00:11 96 H 154/72 H 06/06/22 00:10 100 H 100 06/06/22 00:08 92 H 06/06/22 00:08 170/88 H 06/06/22 00:08 93 H 166/86 H 06/06/22 00:06 90 143/90 H 06/06/22 00:05 103 H 100 06/06/22 00:01 102 H 175/89 H 06/06/22 00:00 103 H 99 06/05/22 23:58 101 H 93 06/05/22 23:56 103 H 175/96 H 06/05/22 23:55 102 H 100 06/05/22 23:50 102 H 96 06/05/22 23:45 107 H 96 06/05/22 23:41 92 H 91 06/05/22 23:40 85 99 06/05/22 23:35 90 98 06/05/22 23:33 99 H 155/76 H 06/05/22 23:30 108 H 100 06/05/22 23:25 97 H 99 06/05/22 23:22 108 H 153/75 H 06/05/22 23:20 114 H 100 06/05/22 23:16 96 H 146/82 H 06/05/22 23:15 105 H 99 06/05/22 23:12 110 H 152/75 H 06/05/22 23:10 101 H 99 06/05/22 23:05 92 H 99 06/05/22 23:00 36.5 C 103 H 20 99 06/05/22 22:55 109 H 98 06/05/22 22:54 92 H 157/77 H 06/05/22 22:50 101 H 99 06/05/22 22:45 100 H 100 06/05/22 22:42 98 H 136/88 06/05/22 22:40 99 H 99 06/05/22 22:37 96 H 158/77 H 06/05/22 22:35 100 H 100 06/05/22 22:32 88 159/77 H 06/05/22 22:31 115 H 191/103 H 06/05/22 22:30 101 H 100 06/05/22 22:27 98 H 143/82 H 06/05/22 22:25 93 H 100 06/05/22 22:20 102 H 152/79 H 100 06/05/22 22:17 110 H 170/89 H 06/05/22 22:15 102 H 100 06/05/22 22:13 18 06/05/22 22:13 18 06/05/22 22:12 99 H 135/89 06/05/22 22:10 103 H 100 06/05/22 22:06 90 148/81 H 06/05/22 22:05 90 100 06/05/22 22:02 82 144/77 H 06/05/22 22:00 102 H 100 06/05/22 21:57 86 139/79 06/05/22 21:55 98 H 100 06/05/22 21:51 90 150/80 H 06/05/22 21:50 93 H 100 06/05/22 21:46 82 146/80 H 06/05/22 21:45 97 H 100 06/05/22 21:44 88 143/74 H 06/05/22 21:42 97 H 170/71 H 06/05/22 21:40 93 H 100 06/05/22 21:35 82 06/05/22 21:35 87 142/75 H 100 06/05/22 21:32 102 H 198/122 H 06/05/22 21:30 115 H 100 06/05/22 21:27 109 H 139/80 06/05/22 21:25 84 100 06/05/22 21:20 88 100 06/05/22 21:16 101 H 159/75 H 06/05/22 21:15 86 100 06/05/22 21:11 95 H 154/84 H 06/05/22 21:10 99 H 100 06/05/22 21:07 93 H 134/77 06/05/22 21:05 86 100 06/05/22 21:02 85 135/79 06/05/22 21:00 88 100 06/05/22 20:56 106 H 122/69 06/05/22 20:55 91 H 100 06/05/22 20:52 98 H 142/68 H 06/05/22 20:50 109 H 100 06/05/22 20:47 88 123/62 06/05/22 20:45 100 H 100 06/05/22 20:42 98 H 132/74 06/05/22 20:40 89 100 06/05/22 20:37 98 H 130/78 06/05/22 20:35 89 100 06/05/22 20:31 92 H 130/72 06/05/22 20:30 85 100 06/05/22 20:28 100 H 124/65 06/05/22 20:25 103 H 100 06/05/22 20:22 100 H 116/67 06/05/22 20:20 93 H 100 06/05/22 20:16 87 131/73 06/05/22 20:15 83 100 06/05/22 20:11 99 H 136/69 06/05/22 20:10 85 100 06/05/22 20:07 101 H 126/66 06/05/22 20:05 85 100 06/05/22 20:02 95 H 128/71 06/05/22 20:00 96 H 100 06/05/22 19:56 96 H 130/66 06/05/22 19:55 103 H 100 06/05/22 19:52 96 H 121/67 06/05/22 19:50 99 H 100 06/05/22 19:46 100 H 116/68 06/05/22 19:45 105 H 100 06/05/22 19:42 86 124/64 06/05/22 19:40 104 H 100 06/05/22 19:36 81 116/63 06/05/22 19:35 92 H 99 06/05/22 19:33 100 H 117/60 06/05/22 19:30 105 H 100 06/05/22 19:26 93 H 129/62 06/05/22 19:25 106 H 100 06/05/22 19:22 85 122/56 L 06/05/22 19:20 96 H 99 06/05/22 19:17 96 H 130/60 06/05/22 19:15 137 H 100 06/05/22 19:11 109 H 127/60 06/05/22 19:10 115 H 99 06/05/22 19:06 98 H 96/55 L 06/05/22 19:05 99 H 99 06/05/22 19:03 90 117/56 L 06/05/22 19:00 97 H 100 06/05/22 18:56 93 H 123/65 06/05/22 18:55 91 H 99 06/05/22 18:50 102 H 100 06/05/22 18:49 109 H 129/61 06/05/22 18:47 112 H 131/65 06/05/22 18:45 92 H 134/64 99 06/05/22 18:43 111 H 128/64 06/05/22 18:41 99 H 133/67 06/05/22 18:40 94 H 99 06/05/22 18:39 93 H 132/66 06/05/22 18:37 92 H 132/66 06/05/22 18:35 94 H 139/66 99 06/05/22 18:33 92 H 136/68 06/05/22 18:31 114 H 129/70 06/05/22 18:30 110 H 100 06/05/22 18:29 117 H 133/76 06/05/22 18:27 90 140/73 06/05/22 18:25 78 153/74 H 100 06/05/22 18:23 77 06/05/22 18:23 154/79 H 06/05/22 18:23 83 167/80 H 06/05/22 18:20 96 H 100 06/05/22 18:15 109 H 100 06/05/22 18:10 102 H 100 06/05/22 18:05 93 H 100 06/05/22 18:00 91 H 100 06/05/22 17:55 87 100 06/05/22 17:50 95 H 100 06/05/22 17:45 98 H 100 06/05/22 17:40 97 H 100 06/05/22 15:53 87 141/92 H 06/05/22 15:34 88 178/104 H 06/05/22 15:35 83 165/98 H 06/05/22 15:13 76 159/89 H 06/05/22 15:00 37.1 C 06/05/22 14:54 92 H 143/90 H 06/05/22 14:34 86 150/91 H 06/05/22 14:15 81 158/92 H 06/05/22 13:53 78 163/90 H 06/05/22 13:33 18 06/05/22 13:33 37.0 C 18 06/05/22 13:32 81 172/92 H 06/05/22 13:29 77 187/96 H Pain Intensity Bilateral Abdomen: Pain Intensity: 10 Transfer of Care Handoff Completed per policy Notes Mental Status: alert / awake / arousable and participated in evaluation Nausea / Vomiting: adequately controlled Pain: adequately controlled Airway Patency, RR, SpO2: stable & adequate BP & HR: stable & adequate Hydration State: stable & adequate Neuraxial Anesthesia: was administered and sensory block is resolving Anesthetic Complications: no major complications apparent and Pt Satisfied with anesthetic care
[2022-06-06] MEDS ORDERED: Nursing to Pharmacy Communication SCH (09:00)
[2022-06-06 09:04] LABS: Albumin Globulin Ratio 1.1 (0.9-2); BUN Creatinine Ratio 16.9 (10-20); Bilirubin,Total 0.7 mg/dl (0.2-1.0); Calcium 8.2 mg/dl (8.5-10.1); Creatinine Clr Calc Pharmacy 131.4 ml/min; Est GFR (African American) 144.6 ml/min; Est GFR (Non-African American) 124.7 ml/min; Globulin 2.8 gm/dl (2.5-4.0); Potassium 3.8 mmol/L (3.5-5.1); Total Protein 5.8 gm/dl (6.0-8.3)
[2022-06-06 17:00] LABS: Hematocrit (blood only) 28.7 % (34.1-44.9); Hemoglobin 9.9 g/dl (12.0-16.0); Mean Corpuscular Hemoglobin 29.9 pg (25.0-34.0); Mean Corpuscular Hgb Conc 34.5 g/dL (32.0-36.0); Mean Corpuscular Volume 86.7 fL (80.0-100.0); Mean Platelet Volume 12.3 fL (9.4-12.3); Platelet Count 112 K/uL (130-400); RDW Standard Deviation 50.4 fL (36.4-46.3); Red Blood Count 3.31 M/uL (3.93-5.22); White Blood Count 12.77 K/ul (4.8-10.8)
[2022-06-06] MEDS: OXYTOCIN 20 UNITS in LACTATED RINGER'S 1,000 ML IV SCH (18:06)
[2022-06-07] MEDS ORDERED: diphenhydrAMINE 50 MG/ML VIAL IV PRN (00:33)
[2022-06-07] MEDS ORDERED: ONDANSETRON INJ 2 MG/ML 2 ML VIAL IV PRN (00:33)
[2022-06-07] MEDS ORDERED: PROMETHAZINE HCL 25 MG in SODIUM CHLORIDE 0.9% 50 ML IV PRN (00:33)
[2022-06-07] MEDS ORDERED: diphenhydrAMINE Capsule 25 MG CAP PO PRN (00:33)
[2022-06-07] MEDS: MAGNESIUM SULFATE / WTR 40 GM/1,000 ML BAG IV SCH (02:06)
[2022-06-07] MEDS ORDERED: KETOROLAC 30 MG/ML VIAL IV PRN (02:32)
[2022-06-07] MEDS ORDERED: MEPERIDINE HCL 50 MG/ML CARP IV PRN (02:32)
[2022-06-07] MEDS ORDERED: KETOROLAC 30 MG/ML VIAL ONE (02:54)
[2022-06-07 06:14] LABS: Hematocrit (blood only) 27.4 % (34.1-44.9); Hemoglobin 9.3 g/dl (12.0-16.0); Mean Corpuscular Hemoglobin 29.6 pg (25.0-34.0); Mean Corpuscular Hgb Conc 33.9 g/dL (32.0-36.0); Mean Corpuscular Volume 87.3 fL (80.0-100.0); Mean Platelet Volume 12.3 fL (9.4-12.3); Platelet Count 118 K/uL (130-400); RDW Standard Deviation 50.9 fL (36.4-46.3); Red Blood Count 3.14 M/uL (3.93-5.22); White Blood Count 14.43 K/ul (4.8-10.8)
[2022-06-07 06:45] LABS: Basophils # (auto) 0.02 K/uL (0-0.2); Basophils % (auto) 0.1 %; Immature Granulocytes # (auto) 0.07 K/uL (0.00-0.02); Immature Granulocytes % (auto) 0.5 %; Lymphocytes # (auto) 1.06 K/uL (1.2-3.4); Lymphocytes % (auto) 7.3 %; Monocytes # (auto) 0.74 K/uL (0.24-0.82); Monocytes % (auto) 5.1 %; Neutrophils # (auto) 12.54 K/uL (1.4-6.5); RBC Morphology Unremarkable
[2022-06-07] MEDS: OXYTOCIN 20 UNITS in LACTATED RINGER'S 1,000 ML IV SCH (07:05)
--- NOTE | 2022-06-07 08:06 | Obstetrical Progress Note ---
Date of Service June 07, 2022 Assessment & Plan (1) Mild preeclampsia: Plan: Reviewed labs hemoglobin is stable blood pressures are now stable in normal range. Magnesium sulfate transferred to the floor Admission and Anticipated Discharge Date Admission Date: June 05, 2022 Subjective Patient still on magnesium sulfate feels well her pain is now controlled she will be 24 hours of magnesium soon and I will stop this and will allow her to eat Results & Data ([facility]) Vital Signs (Past 12 Hours) Vital Signs Temp Pulse Resp BP Pulse Ox 06/07/22 07:03 97.9 F 20 06/07/22 07:03 20 06/07/22 06:30 19 06/07/22 06:30 19 06/07/22 05:13 18 06/07/22 04:17 98.6 F 20 06/07/22 04:17 20 06/07/22 03:00 20 06/07/22 02:29 98.1 F 20 06/07/22 02:08 20 06/07/22 01:56 20 06/07/22 00:40 20 100 06/07/22 00:40 20 06/07/22 00:48 98.8 F 20 06/06/22 23:40 99.9 F H 20 06/06/22 23:40 20 98 06/06/22 23:40 20 06/06/22 22:14 20 100 06/06/22 22:14 20 06/06/22 21:15 18 100 06/06/22 21:15 18 06/06/22 20:13 18 100 06/06/22 20:13 18 06/07/22 08:02 96 H 134/80 06/07/22 08:00 105 H 100 06/07/22 07:55 90 99 06/07/22 07:50 92 H 100 06/07/22 07:45 96 H 100 06/07/22 07:40 100 H 100 06/07/22 07:35 96 H 100 06/07/22 07:30 93 H 99 06/07/22 07:25 91 H 99 06/07/22 07:20 89 99 06/07/22 07:15 90 99 06/07/22 07:10 89 99 06/07/22 07:05 90 99 06/07/22 07:02 100 H 141/71 H 06/07/22 07:00 89 99 06/07/22 06:55 95 H 100 06/07/22 06:50 90 98 06/07/22 06:45 93 H 99 06/07/22 06:40 93 H 100 06/07/22 06:35 97 H 100 06/07/22 06:30 93 H 100 06/07/22 06:25 96 H 100 06/07/22 06:20 97 H 100 06/07/22 06:15 100 H 100 06/07/22 06:10 96 H 100 06/07/22 06:05 97 H 100 06/07/22 06:03 102 H 127/58 L 06/07/22 06:00 93 H 100 06/07/22 05:55 94 H 100 06/07/22 05:50 93 H 100 06/07/22 05:45 95 H 100 06/07/22 05:40 92 H 100 06/07/22 05:35 90 100 06/07/22 05:30 101 H 100 06/07/22 05:25 95 H 100 06/07/22 05:20 94 H 100 06/07/22 05:15 105 H 100 06/07/22 05:10 101 H 100 06/07/22 05:05 98 H 100 06/07/22 05:02 103 H 125/72 06/07/22 05:00 101 H 100 06/07/22 04:55 96 H 100 06/07/22 04:50 100 H 100 06/07/22 04:45 110 H 100 06/07/22 04:40 111 H 100 06/07/22 04:35 98 H 100 06/07/22 04:30 103 H 100 06/07/22 04:25 106 H 100 06/07/22 04:20 108 H 100 06/07/22 04:15 118 H 100 06/07/22 04:10 105 H 100 06/07/22 04:05 108 H 100 06/07/22 04:03 117 H 127/55 L 06/07/22 04:00 112 H 99 06/07/22 03:55 109 H 99 06/07/22 03:50 115 H 99 06/07/22 03:45 120 H 97 06/07/22 03:40 119 H 99 06/07/22 03:35 122 H 99 06/07/22 03:30 118 H 98 06/07/22 03:25 115 H 99 06/07/22 03:20 117 H 98 06/07/22 03:15 117 H 98 06/07/22 03:10 117 H 99 06/07/22 03:05 117 H 100 06/07/22 03:02 118 H 136/73 06/07/22 03:00 119 H 100 06/07/22 02:55 126 H 100 06/07/22 02:50 131 H 100 06/07/22 02:45 122 H 100 06/07/22 02:40 121 H 100 06/07/22 02:35 121 H 100 06/07/22 02:30 125 H 100 06/07/22 02:25 131 H 100 06/07/22 02:20 121 H 100 06/07/22 02:15 121 H 100 06/07/22 02:10 120 H 100 06/07/22 02:05 126 H 100 06/07/22 02:03 129 H 153/86 H 06/07/22 02:00 121 H 100 06/07/22 01:55 123 H 100 06/07/22 01:50 123 H 100 06/07/22 01:45 122 H 100 06/07/22 01:40 117 H 100 06/07/22 01:35 114 H 100 06/07/22 01:30 112 H 100 06/07/22 01:25 113 H 100 06/07/22 01:20 111 H 100 06/07/22 01:15 115 H 100 06/07/22 01:10 112 H 100 06/07/22 01:05 116 H 100 06/07/22 01:02 121 H 146/81 H 06/07/22 01:00 111 H 100 06/07/22 00:55 112 H 100 06/07/22 00:50 112 H 100 06/07/22 00:45 111 H 99 06/07/22 00:40 123 H 99 06/07/22 00:35 112 H 99 06/07/22 00:30 111 H 98 06/07/22 00:25 113 H 99 06/07/22 00:20 112 H 98 06/07/22 00:15 113 H 98 06/07/22 00:10 111 H 98 06/07/22 00:05 115 H 98 06/07/22 00:02 112 H 137/71 06/07/22 00:00 111 H 97 06/06/22 23:55 113 H 97 06/06/22 23:50 109 H 97 06/06/22 23:45 113 H 97 06/06/22 23:40 111 H 97 06/06/22 23:35 113 H 97 06/06/22 23:30 114 H 97 06/06/22 23:25 115 H 98 06/06/22 23:20 111 H 99 06/06/22 23:15 126 H 98 06/06/22 23:10 119 H 97 06/06/22 23:05 117 H 97 06/06/22 23:02 115 H 133/69 06/06/22 23:00 117 H 99 06/06/22 22:55 114 H 100 06/06/22 22:50 117 H 100 06/06/22 22:45 133 H 100 06/06/22 22:40 123 H 100 06/06/22 22:35 124 H 100 06/06/22 22:30 121 H 100 06/06/22 22:25 124 H 100 06/06/22 22:20 125 H 100 06/06/22 22:15 128 H 100 06/06/22 22:10 131 H 100 06/06/22 22:05 118 H 100 06/06/22 22:02 126 H 138/71 06/06/22 22:00 124 H 99 06/06/22 21:55 116 H 99 06/06/22 21:50 116 H 100 06/06/22 21:45 126 H 100 06/06/22 21:40 127 H 100 06/06/22 21:35 123 H 100 06/06/22 21:30 119 H 100 06/06/22 21:25 127 H 100 06/06/22 21:20 123 H 100 06/06/22 21:15 124 H 100 06/06/22 21:10 125 H 100 06/06/22 21:05 128 H 100 06/06/22 21:02 123 H 129/65 06/06/22 21:00 114 H 100 06/06/22 20:55 117 H 100 06/06/22 20:50 122 H 100 06/06/22 20:45 126 H 100 06/06/22 20:40 118 H 100 06/06/22 20:35 114 H 100 06/06/22 20:30 121 H 100 06/06/22 20:25 118 H 100 06/06/22 20:20 119 H 100 06/06/22 20:15 114 H 100 06/06/22 20:10 121 H 100 PG Care Time/CCT Total # of Minutes Spent Total Time Spent with Patient: Total time spent is greater than 50% in coordination of care (as documented) at patient's floor/unit and/or counseling patient: Coding Level of Care Code None Diagnoses Mild preeclampsia O14.00
[2022-06-07] MEDS: DOCUSATE SODIUM 100 MG CAP PO SCH ×2 (09:37→20:50)
[2022-06-07] MEDS: PRENATAL VITAMIN 1 TAB PO SCH (09:37)
[2022-06-07] MEDS: SIMETHICONE 80 MG CHEW PO SCH ×4 (09:37→20:51)
[2022-06-07] MEDS: FERROUS SULFATE 325 MG TAB PO SCH (09:37)
[2022-06-07] MEDS: oxyCODONE/ACETAMINOPHEN 5mg/325mg TAB PO PRN (16:05)
[2022-06-07] MEDS: IBUPROFEN 600 MG TAB PO PRN (16:05)
[2022-06-07] MEDS ORDERED: bisacodyL 5 MG TABEC PO SCH (20:00)
[2022-06-08] MEDS: LACTATED RINGER'S 1,000 ML IV SCH ×2 (01:12→01:13)
[2022-06-08] MEDS: IBUPROFEN 600 MG TAB PO PRN ×5 (02:14→21:13)
[2022-06-08] MEDS: oxyCODONE/ACETAMINOPHEN 5mg/325mg TAB PO PRN ×5 (02:15→21:12)
--- NOTE | 2022-06-08 06:14 | Obstetrical Progress Note ---
Date of Service June 08, 2022 Assessment & Plan (1) Mild preeclampsia: (2) Supervision of normal first : Plan s/p POD#2: Vitals reviewed and WNL, BP 120s-130s/80s B+, GBS negative, Rubella immune Encourage ambulation Continue regular diet, treat pain as needed Admission and Anticipated Discharge Date Admission Date: June 05, 2022 Supervising Physician Co-Signing Physician Notes Resident Physician Supervision Note: I was present with Dr. Moran during the history and exam. I discussed the case with the resident and agree with the findings and plan as documented in the note. Any exceptions or clarifications are listed here: [None] Documented By: Unruly Blanco MD, FACOG Subjective Herminia is a 27 y/o female who is POD #2 following delivery at 38 5/7 weeks. Her was complicated by mild preeclampsia and anemia requiring iron infusion and B12 injections. Did require magnesium but has had stable BP since. She reports feeling well overall this morning. Pain is managed on analgesics. Voiding without issue. Tolerating meals overnight and able to ambulate some. Endorses passing gas and no bowel movement. Notes lochia with some improvement this morning. Currently formula feeding. Review of Systems Constitutional: no fever, no chills and no sweats Respiratory: no cough, no dyspnea and no wheezing Cardiovascular: no chest pain, no palpitations and no calf pain Genitourinary: no dysuria Neurologic: no headache(s) Physical Exam Constitutional: WD/WN, vitals as above no acute distress Respiratory: no respiratory distress Auscultation: lungs clear to auscultation bilaterally; no rales, no rhonchi and no wheezes Cardiovascular: RRR, no murmur, no edema Extremities: no calf tenderness and no edema Negative Milagro's sign bilaterally. Gastrointestinal (Abdomen): Inspection/Auscultation: normal bowel sounds Genitourinary: Uterine fundus firm, palpable below the umbilicus. Bandage covering incision site partially removed, site is clean and healing well. Results & Data ([facility]) Vital Signs (Past 12 Hours) Vital Signs Temp Pulse Resp BP O2 Del Method 06/07/22 23:15 Room Air 06/07/22 23:15 36.7 C 81 18 124/67 Room Air 06/07/22 19:25 37.0 C 82 18 125/70 Resident Activity Tracking Resident Involvement: Resident Care Provided Care Provided: OB Delivery
[2022-06-08 06:25] LABS: Hematocrit (blood only) 25.6 % (34.1-44.9); Hemoglobin 8.5 g/dl (12.0-16.0); Mean Corpuscular Hemoglobin 29.6 pg (25.0-34.0); Mean Corpuscular Hgb Conc 33.2 g/dL (32.0-36.0); Mean Corpuscular Volume 89.2 fL (80.0-100.0); Mean Platelet Volume 11.7 fL (9.4-12.3); Platelet Count 141 K/uL (130-400); RDW Coefficient of Variation 16.1 % (11.5-14.5); RDW Standard Deviation 53.6 fL (36.4-46.3); Red Blood Count 2.87 M/uL (3.93-5.22); White Blood Count 12.97 K/ul (4.8-10.8)
[2022-06-08] MEDS: DOCUSATE SODIUM 100 MG CAP PO SCH ×2 (07:36→21:12)
[2022-06-08] MEDS: PRENATAL VITAMIN 1 TAB PO SCH (07:36)
[2022-06-08] MEDS: FERROUS SULFATE 325 MG TAB PO SCH (07:36)
[2022-06-08] MEDS: SIMETHICONE 80 MG CHEW PO SCH ×4 (07:37→21:12)
[2022-06-08] MEDS ORDERED: bisacodyL 10 MG SUPP PR PRN (08:00)
[2022-06-09] MEDS: IBUPROFEN 600 MG TAB PO PRN ×3 (03:05→12:34)
[2022-06-09] MEDS: oxyCODONE/ACETAMINOPHEN 5mg/325mg TAB PO PRN ×3 (03:05→12:34)
--- NOTE | 2022-06-09 07:01 | Obstetrical Progress Note ---
Date of Service June 09, 2022 Assessment & Plan (1) Mild preeclampsia: (2) Supervision of normal first : Plan s/p POD#3: -Vital signs reviewed, BP~144/80 this morning, Tmax 38C -B+, GBS negative, Rubella immune -Hemoglobin 11.9, 9.9, 9.3, 8.5 (06/08) -Encourage ambulation -Continue regular diet, treat pain with scheduled Tylenol and Motrin -Discussed discharge plan to d/c today -Will follow up with BP check in 1 week at clinic Admission and Anticipated Discharge Date Admission Date: June 05, 2022 Supervising Physician Co-Signing Physician Notes Patient seen and evaluated with resident and agree with the above findings and plan. Patient doing well. patient denies any preeclampsia symptoms. Blood pressures have been mostly on the lower end of mild range or normotensive. Will arrange for 1 week blood pressure check. Stable for discharge Maurizio Hope is a 27 y/o female who is POD #3 following delivery at 38 5/7 weeks. Her was complicated by mild preeclampsia and anemia requiring iron infusion and B12 injections. Did require magnesium earlier in the admission. She reports feeling well overall this morning. Pain is managed on analgesics. Voiding without issue. Tolerating meals overnight and able to ambulate some. Endorses passing gas and no bowel movement. Notes lochia with some improvement this morning. Planning to start breast feeding. Review of Systems Constitutional: no fever, no chills and no sweats Respiratory: no cough, no dyspnea and no wheezing Cardiovascular: no chest pain, no palpitations and no calf pain Genitourinary: no dysuria Neurologic: no headache(s) Physical Exam Constitutional: WD/WN, vitals as above no acute distress Respiratory: no respiratory distress Auscultation: lungs clear to auscultation bilaterally; no rales, no rhonchi and no wheezes Cardiovascular: RRR, no murmur, no edema Extremities: no calf tenderness and no edema Negative Milagro's sign bilaterally. Gastrointestinal (Abdomen): Inspection/Auscultation: normal bowel sounds Genitourinary: Uterine fundus firm, palpable below the umbilicus. Surgical incision site is clean and healing well. Results & Data ([facility]) Vital Signs (Past 12 Hours) Vital Signs Temp Pulse Resp BP Pulse Ox O2 Del Method 06/09/22 04:00 144/80 H 06/09/22 01:00 36.7 C 76 16 149/88 H 99 Room Air 06/08/22 20:00 36.7 C 84 18 139/85 97 Room Air Resident Activity Tracking Resident Involvement: Resident Care Provided Care Provided: OB Delivery
[2022-06-09] MEDS: FERROUS SULFATE 325 MG TAB PO SCH (07:46)
[2022-06-09] MEDS: DOCUSATE SODIUM 100 MG CAP PO SCH (07:46)
[2022-06-09] MEDS: SIMETHICONE 80 MG CHEW PO SCH ×2 (07:46→12:34)
[2022-06-09] MEDS: PRENATAL VITAMIN 1 TAB PO SCH (07:46)
--- NOTE | 2022-06-10 15:42 | Discharge Summary ---
Date of Service Date of admission: 06/04/22 Date of discharge: 06/05/22 Admission HPI Per Admitting Provider Herminia is a 27 y/o female currently at 38 4/7 WGA with an SPIKE 06/15/22 as determined by LMP who is here for labor after rupture of membranes. Clear fluid around 12:00. Her was complicated by anemia s/p iron infusion x3 and B12 injections. Most recent hemoglobin= 13.1 (05/27/22). Denies contractions; + movement; + fluid loss; - bloody show External FHT and external uterine monitors used; Category 1 tracing; moderate FHT variability. Had regular appointments with OB. Labs: (11/04/21) Blood type: B+ Antibody screen: neg Hg: pending (today) Hct: pending (today) WBC: pending (today) Plt: pending (today) Rubella: immune VDRL/RPR: neg Gonorrhea: neg Chlamydia: neg HIV: neg HbSAg: neg GBS: neg Other screens: Declines cf/sma--mln Declines cfdna--mln Discharge Data Consultations 06/05/22 15:19 Consult Anesthesiology Stat Procedures Performed Operation Date: 06/06/22 05:15 Actual Procedures p Primary Low Transverse Section in LD(Bilateral) - Milagro Chaparro MD, [facility] Hospital Course (1) Mild preeclampsia: (2) H/O section: Plan Patient was admitted and progressed in labor. She required pitocin and did get epidural for pain management. It was determined due to her admitting bps and urine prot/creat ratio that she met criteria for mild preeclampsia. Despite getting to complete, pt pushed but then refused to push due to pain and ultimately asked for c/s on demand. The procedure was perfromed and post- delivery, the bps were severely elevated and therefore course of magnesium was given. BPs were less severe with time. The patient's remaining postoperative course and recovery was uncomplicated. On her postoperative day #3 she was tolerating a regular diet, voiding spontaneously, ambulating without problem and was using oral meds for adequate pain control. Her postoperative hemoglobin was 8.5. She was given written and verbal discharge instructions and told to followup in office at 6wks. She was given appropriate pain medicine prescriptions. Coding Level of Care Code None Diagnoses Mild preeclampsia O14.00 H/O section Z98.891
== END 2022-06-09 13:30 | disposition home or self-care (01) | DRG 788 ==
LOC: OPB 13:17 → 4S1 13:18 → 4E2 06-07 10:05